=== PATIENT | male | born 1980 | race Caucasian/White ===

== ENCOUNTER 2021-11-20 03:46 | Emergency (ER) | payer OTHER ==
[~2021-11-20] VITALS: Ht 180.3 cm; Wt 193.7 kg
[2021-11-20 04:28] VITALS: BP 162/90
== END 2021-11-20 04:34 | disposition home or self-care (01) ==
LOC: EDH 03:46
DX: I87.2 Venous insufficiency (chronic) (peripheral) (principal); Z88.1 Allergy status to other antibiotic agents
CPT/HCPCS: 99282